=== PATIENT | female | born 1990 | race Caucasian/White ===

== ENCOUNTER 2020-07-30 09:38 | Emergency (ER) | payer SELFPAY ==
[~2020-07-30] VITALS: Ht 165.1 cm; Wt 85.0 kg
[2020-07-30] MEDS ORDERED: LORazepam 1MG TABLET ONE (10:30)
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
[2020-07-30] MEDS ORDERED: LORazepam 1MG TABLET PO ONE (11:30)
--- NOTE | 2020-07-30 11:38 | NUR ---
[facility] CONTACTED. SPOKE WITH VALENTINA. INFORMATION PROVIDED REQUESTED. PER VALENTINA, CONTACT [facility] TEAM AFTER [facility] TAKES REPORT WHEN PT READY TO BE DISCHARGED.
--- NOTE | 2020-07-30 11:49 | NUR ---
[facility] FINISHED WITH BEDSIDE QUESTIONING. [facility] STATING THEY WILL TRANSPORT PT TO [facility] EXAM. VITALY FOWLER NOTIFIED OF [facility] TRANSPORT. URINE TESTS DISCUSSED. PER VITALY FOWLER, OKAY TO DISCHARGE PT WITHOUT ORDERED URINE TEST PT GOING FOR [facility] EXAM.
--- NOTE | 2020-07-30 11:52 | NUR ---
PT SITTING ON GURNEY, DRESSED AND READY FOR TRANSPORT. CONTINUES TO APPEAR VISIBLY UPSET BUT CALMER THAN ON ADMIT FOLLOWING ADMIN OF PO ATIVAN.
[2020-07-30 11:53] VITALS: BP 109/42
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
== END 2020-07-30 12:19 | disposition home or self-care (01) ==
LOC: ED 12:01
DX: T76.21XA Adult sexual abuse, suspected, initial encounter (principal)
CPT/HCPCS: 99283